=== PATIENT | female | born 1965 | race Caucasian/White ===

== ENCOUNTER → 2016-07-18 16:57 | Outpatient (CLI) | payer OTHER ==
[2015-06-11 17:08] VITALS: BMI 42.1
[~2016-07-18 16:57] MED LIST: ELIQUIS2.5 MG PO; GLUCOPHAGE500 MG PO; GLUCOTROL XL 5 M5 MG PO; LISINOPRIL2.5 MG PO; MEPERIDINE HCL50 MG PO; PERCOCET 10/3251 TA1 PO; TAMIFLU75 MG PO
== END | disposition home or self-care (01) ==
LOC: D.LABREF 16:57
DX: M17.11 Unilateral primary osteoarthritis, right knee (principal); Z11.8 Encounter for screening for other infectious and parasitic diseases

== ENCOUNTER 2016-08-04 12:50 | Emergency (ER) | payer OTHER ==
[2015-06-11 17:08] VITALS: BMI 42.1
[~2016-08-04 12:50] MED LIST changes: -GLUCOPHAGE500 MG PO; -MEPERIDINE HCL50 MG PO
[2016-08-04 16:50] LABS: BASOPHILS 0.2 % (0.0-2.0); EOSINOPHILS 2.7 % (0-7); HEMATOCRIT 42.5 % (36.0-48.0); HEMOGLOBIN 14.5 g/dL (12-16); IMMATURE GRANULOCYTES 0.3 % (0-5); LYMPHOCYTES 16.2 % (15-50); MCH 29.8 pg (26.0-34.0); MCHC 34.1 g/dL (31.0-37.0); MCV 87.3 fL (80.0-100.0); MEAN PLATELET VOLUME 9.9 fL (7.4-10.4); MONOCYTES 7.7 % (2-11); NEUTROPHILS 72.9 % (40-80); RBC 4.87 10x6/uL (4.00-5.40); RDW 12.8 % (11.5-14.5); WBC 9.3 10x3/uL (4.8-10.8)
[2016-08-04 17:07] LABS: PLATELET COUNT 273 10x3/uL (130-400)
[2016-08-17] MEDS ORDERED: GLUCOPHAGE500 MG PO (11:16)
== END 2016-08-04 18:26 | disposition home or self-care (01) ==
LOC: D.ER 12:50
PROVIDERS: Nurse Practitioner Acute Care
DX: M25.461 Effusion, right knee (principal); E11.9 Type 2 diabetes mellitus without complications

== ENCOUNTER 2016-08-21 05:50 | Inpatient (IN) | payer OTHER ==
[2016-08-17 12:21] LABS: BASOPHILS 0.4 % (0.0-2.0); EOSINOPHILS 2.4 % (0-7); HEMATOCRIT 43.6 % (36.0-48.0); HEMOGLOBIN 15.1 g/dL (12-16); IMMATURE GRANULOCYTES 0.3 % (0-5); LYMPHOCYTES 11.8 % (15-50); MCH 30.3 pg (26.0-34.0); MCHC 34.6 g/dL (31.0-37.0); MCV 87.4 fL (80.0-100.0); MEAN PLATELET VOLUME 9.7 fL (7.4-10.4); MONOCYTES 10.4 % (2-11); NEUTROPHILS 74.7 % (40-80); PLATELET COUNT 304 10x3/uL (130-400); RBC 4.99 10x6/uL (4.00-5.40); RDW 12.7 % (11.5-14.5); WBC 11.1 10x3/uL (4.8-10.8)
[2016-08-17 12:31] LABS: APPEARANCE CLEAR (CLEAR); BILIRUBIN NEGATIVE (NEGATIVE); COLOR YELLOW (YELLOW); GLUCOSE NEGATIVE (NEGATIVE); KETONE NEGATIVE (NEGATIVE); LEUKOCYTE ESTERASE NEGATIVE (NEGATIVE); NITRITE NEGATIVE (NEGATIVE); PROTEIN NEGATIVE (NEGATIVE); SPECIFIC GRAVITY 1.015 (1.005-1.020); UROBILINOGEN NORMAL (NORMAL)
[2016-08-17 12:33] LABS: CALC OSMOLALITY 280 mosm/kg (275-300); CALCIUM 9.4 mg/dL (8.5-10.1); CHLORIDE - SERUM 100 mmol/L (98-107); CREATININE - SERUM 0.7 mg/dL (0.6-1.3); GLUCOSE 191 mg/dL (74-106); POTASSIUM - SERUM 4.2 mmol/L (3.5-5.1); SODIUM 138 mmol/L (136-145); UREA NITROGEN 13 mg/dL (7-18); eGFR NON AFRICAN AMERICAN > 90 mL/min (90-120)
[2016-08-17 12:35] LABS: INR 0.95 (0.85-1.17); PROTIME 12.5 SECONDS (11.6-15.0)
[~2016-08-21] VITALS: Ht 157.5 cm; Wt 109.1 kg
[~2016-08-21 05:50] MED LIST changes: +GLUCOPHAGE500 MG PO
[2016-08-21 14:31] VITALS: BP 129/75; BMI 44.0
--- NOTE | 2016-08-21 16:02 | NUR ---
PT'S RIGHT FOOT AND LEG WASHED WITH HIBICLENS PRIOR TO CHLORPREP PER D.N.
[2016-08-21 17:31] VITALS: BP 131/78
[2016-08-21 17:33] VITALS: BP 131/78; Ht 157.5 cm; Wt 109.1 kg
--- NOTE | 2016-08-21 17:35 | NUR ---
PATIENT TO ROOM AT THIS TIME. DRESSING TO KNEE CLEAN AND DRY. IV INTACT. VS STABLE. COMPLAINS OF PAIN. BSCDS ON AND WORKING. CALL LIGHT WITHIN REACH.
--- NOTE | 2016-08-21 18:45 | NUR ---
PATIENT IN BED WITH IV INTACT. NO COMPLAINTS AT THIS TIME. BSCDS ON AND WORKING. CALL LIGHT WITHIN REACH. VS STABLE.
--- NOTE | 2016-08-21 19:30 | NUR ---
RECIEVED SHIFT REPORT. PT IS LYING IN BED. ALERT AND ORIENTED AND ABLE TO VERBALIZE NEEDS. IV IS PATENT AND FLUIDS ARE RUNNING PER ORDER. SCD'S ON. CPM ON. DRESSING TO RIGHT KNEE C/D/I. O2 @ 2 PER NASAL CANNULA. PT IS ON BEDREST POSTOP BUT IS ABLE TO TURN SELF IN BED FOR COMFORT AND SKIN CARE. PT STATES PAIN IS 4/10. NO NEEDS ARE VERBALIZED AT THIS TIME. WILL CONTINUE TO MONITOR. SIDE RAILS ARE UP X 2. BED IS IN LOWEST POSITION. BED ALARM IS ON FOR SAFETY. CALL LIGHT IS WITHIN REACH.
[2016-08-21 20:00] VITALS: BP 109/54
--- NOTE | 2016-08-21 21:06 | NUR ---
SHIFT ASSESSMENT COMPLETED. NIGHT MEDS GIVEN WITH NO PROBLEMS. NO NEEDSARE VOICED. WILL MONITOR. SIDE RAILS X 2. BED LOW. BED ALARM ON. CALL LIGHT IN REACH.
[2016-08-22] VITALS: BP 81/49
[2016-08-22 06:02] LABS: HEMOGLOBIN 12.7 g/dL (12-16); MCH 29.5 pg (26.0-34.0); MCHC 33.4 g/dL (31.0-37.0); MCV 88.4 fL (80.0-100.0); MEAN PLATELET VOLUME 10.1 fL (7.4-10.4); RBC 4.3 10x6/uL (4.00-5.40); WBC 11.8 10x3/uL (4.8-10.8)
--- NOTE | 2016-08-22 07:00 | NUR ---
REPORT RECIEVED ASSUMED CARE. PATIENT IN BED WITH IV INTACT. NO COMPLAINTS AT THIS TIME. CALL LIGHT WITHIN REACH.
[2016-08-22 08:19] VITALS: BP 109/42
[2016-08-22 12:16] VITALS: BP 106/65
--- NOTE | 2016-08-22 12:30 | NUR ---
PATIENT RECIEVED DILAUDID 4 MG PO FOR PAIN. PATIENT ALREADY RECIEVED ULTRAM AND TORADOL AND STATED THAT NEITHER ONE OF THEM IS WORKING FOR HER. SPOKE WITH TIM AND RECIEVED ORDERS FOR DILAUDID. PATIENT HAS NO OTHER COMPLAINTS AT THIS TIME. CALL LIGHT WITHIN REACH.
--- NOTE | 2016-08-22 15:57 | NUR ---
Patient Name: ANGEL UMANA Admission Status: Elective Accout number: [id number] Admission Date: 08-21-2016 : 1965 Admission Diagnosis: Attending: CANDELARIA Current LOS: 1 Anticipated DC Date: 08-23-2016 Planned Disposition: Home with Home Health [facility] Discharge Planning Comments: CM MET WITH PATIENT REGARDING D/C NEEDS AND PLANS. PATIENT STATED SHE LIVES WITH HER SPOUSE (DENNY) AND HE WILL DRIVE HER HOME AT DISCHARGE. PATIENT STATED THERE ARE 7 STEPS W/O RAILING TO ENTER HOME AND NO STAIRS INSIDE. PATIENT STATED SHE IS INDEPENDENT WITH HER CARE AND HAS NO DME AT HOME. PATIENTS PCP IS DR. TAYLOR IN [place] AND USES [facility] [address]. PATIENT WANTS HOME HEALTH W/PHYSICAL THERAPY AND SIGNED THE DIANA FORM WITH [employer] [facility]. CM WILL CONTINUE TO FOLLOW PATIENT WITH D/C NEEDS AND PLANS. PCP DR. TAYLOR ([facility]) [facility] [phone] [place] (SPOUSE) [phone] Integrity Analyst: Marivel Bobby Is the patient Alert and Oriented? Yes 0 * How many steps to enter\exit or inside your home? 7 W/O RAIL 0 * PCP DR. TAYLOR IN [facility] 0 * Pharmacy [facility] [address] [phone] * Preadmission Environment Home with Family 0 * ADLs Independent 0 * Equipment None 0 * List name and contact numbers for known caregivers / representatives who currently or will assist patient after discharge: [place] (SPOUSE) [phone] * Community resources currently utilized None 0 * Additional services required to return to the preadmission environment? Yes 0 * Can the patient safely return to the preadmission environment? Yes 0 * Has this patient been hospitalized within the prior 30 days at any hospital? No 0 Grand Total: 0
--- NOTE | 2016-08-22 16:26 | NUR ---
GAVE PATIENT DILAUDID AGAIN FOR PAIN AT THIS TIME. FAMILY AT BEDSIDE. NO COMPLAINTS. CALL LIGHT WITHIN REACH.
[2016-08-22 16:44] VITALS: BP 130/63
--- NOTE | 2016-08-22 18:45 | NUR ---
TIM PUT IN A DIFFERENT ORDER FOR PAIN MEDS AT THIS TIME. PATIENT TOLD HER DILAUDID IS NOT WORKING FOR HER EITHER. REPORT GIVEN TO NIGHT NURSE. CALL LIGHT WITHIN REACH.
--- NOTE | 2016-08-22 19:35 | NUR ---
RECIEVED SHIFT REPORT. PT IS LYING IN BED. ALERT AND ORIENTED AND ABLE TO VERBALIZE NEEDS. IV IS PATENT AND SALINE LOC AT THIS TIME. PT WAS UP WITH PHYSICAL THERAPY BUT STATES SHE IS TOO WEAK AND IN TOO MUCH PAIN TO GET UP TO THE BATHROOM. SCD'S ON. CPM ON. PT STATES PAIN IS 10/10. NO NEEDS ARE VERBALIZED AT THIS TIME. WILL CONTINUE TO MONITOR. SIDE RAILS ARE UP X 2. BED IS IN LOWEST POSITION. BED ALARM IS ON FOR SAFETY. CALL LIGHT IS WITHIN REACH.
[2016-08-22 20:00] VITALS: BP 150/80
--- NOTE | 2016-08-22 20:59 | NUR ---
SHIFT ASSESSMENT COMPLETED. NIGHT MEDS GIVEN WITH NO PROBLEMS. PT C/O PAIN 02/13. ADMINISTERED PRESCRIBED PRN TORADOL PER ORDER. PT RECIEVED 8 UNITS INSULIN PER SLIDING SCALE FOR JTTG=918. NO FURTHER NEEDS VOICED AT THIS TIME. WILL MONITOR. VISITOR AT BEDSIDE. SIDE RAILS X 2. BED LOW. BED ALARM ON. CALL LIGHT IN REACH.
[2016-08-23] VITALS: BP 158/82
[2016-08-23 04:00] VITALS: BP 144/77
[2016-08-23 05:33] LABS: HEMATOCRIT 35.9 % (36.0-48.0); HEMOGLOBIN 12.2 g/dL (12-16); MCH 29.8 pg (26.0-34.0); MCV 87.6 fL (80.0-100.0); MEAN PLATELET VOLUME 9.9 fL (7.4-10.4); RBC 4.1 10x6/uL (4.00-5.40); RDW 12.7 % (11.5-14.5); WBC 11.9 10x3/uL (4.8-10.8)
--- NOTE | 2016-08-23 07:00 | NUR ---
REPORT RECIEVED ASSUMED CARE. PATIENT IN BED WITH IV INTACT. NO COMPLAINTS AT THIS TIME. CALL LIGHT WITHIN REACH.
[2016-08-23 08:15] VITALS: BP 121/69
[2016-08-23] MEDS ORDERED: ELIQUIS2.5 MG PO (08:22)
[2016-08-23] MEDS ORDERED: MEPERIDINE HCL50 MG PO (08:23)
--- NOTE | 2016-08-23 12:56 | NUR ---
CM REASSESSMENT NOTE: PATIENT IS DISCHARGING HOME WITH [facility] ([facility] DID NOT TAKE PATIENTS INSURANCE.) PATIENTS SPOUSE IS AT BEDSIDE TO DRIVE PATIENT HOME. DME BEING DELIVERED TO ROOM BEFORE DISCHARGE.
--- NOTE | 2016-08-23 14:00 | NUR ---
PATIENT RECIEVED DISCHARGE INSTRUCTIONS. VERBALIZED UNDERSTANDING. NO QUESTIONS AT THIS TIME. PRESCRIPTIONS ALSO GIVEN TO PATIENT. IV REMOVED WITH CATH TIP INTACT. DRESSING TO RIGHT KNEE INTACT. FAMILY AT SIDE. CALL [facility] WITHIN REACH. AWAITING CPM AND WALKER FOR DC.
--- NOTE | 2016-08-23 15:22 | OP ---
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 PROCEDURE: Revision total knee arthroplasty. SURGEON: Johann Jensen MD ANESTHESIA: General. INTRAOPERATIVE COMPLICATIONS: None. SUMMARY OF PATHOLOGIC FINDINGS: The patient's polyethylene portion of the [place] had essentially split and was on the medial side of the knee and the soft tissues. Both femoral and tibial component came off very easily indicating possible loosening as well. IMPLANTS USED: [email or web address] triathlon total knee arthroplasty -- cemented with a medial 5 mm wedge into the baseplate, using universal baseplate. OPERATIVE SUMMARY IN DETAIL: After obtaining the appropriate preoperative orthopedic surgery consent as well as anesthetic consultation, evaluation and clearance, the patient was brought to the operating room and placed on the operating table in supine position. After general laryngeal mask was administered, tourniquet was placed about the proximal aspect of the right lower extremity. Right lower extremity was then prepped and draped in routine sterile fashion. The leg was elevated and exsanguinated, tourniquet was inflated to 350 mmHg. The incision used previously for the Wood[place] was incorporated into a medial to midline incision. This was taken down for paramedian arthrotomy. Patella was everted and the findings as noted above were seen. The polyethylene component that was in the medial soft tissues was removed. At this point, the femoral component was removed very easily. Additional soft tissue excision was followed by complete exposure of the tibia. It was likewise removed very easily with an osteotome. Distal intramedullary guide hole was created for distal femoral cutting followed by intramedullary guide hole of the tibia for the tibial cutting. Trials were put into place. At this point, the decision was made due to poor bone quality on the medial side and the depth of the cut, a 5-mm step off cut was made using the [employer] step-off cut guide. This was again trialed and a size 13 polyethylene was the most appropriate for soft tissue balance, and full range of motion. The patella was in good condition and it was not resurfaced. The knee was then copiously irrigated in pulsatile lavage fashion. The components were cemented into place. After augmentation on the medial side, the baseplate was placed. All excess cement was removed. After the cement was allowed to harden, the knee was taken through range of motion and found to be excellent. Paramedian arthrotomy was closed with #2 Ethibond followed by #1 Vicryl, 2-0 Vicryl and skin megan. Sterile dressings were OPERATIVE REPORT [id number] ANGEL UMANA applied. Tourniquet was deflated. The patient was awakened, taken to the recovery room in stable condition. All final needle and sponge counts were correct. TRANSINT:[id number] Voice Confirmation ID: [id number] DOCUMENT ID: [id number] JOHANN JENSEN MD at 1522 CC: [id number] DICTATION DATE: 08/21/16 170 [place] HAND: 08/22/16 0143 ADM IN [place] [id number] [place] [id number]
== END 2016-08-23 16:02 | disposition home health service (06) | DRG 467 ==
LOC: D.SDCHOLD 05:50 → D.MS 17:07 → D.SDCHOLD 18:00 → D.MS 08-23 16:02
PROVIDERS: ADMIT Orthopaedic Surgery
PROC: 0SPC0JZ Removal of Synthetic Substitute from Right Knee Joint, Open Approach (ICD-10-PCS; 2016-08-21)
PROC: 0SRC0J9 Replacement of Right Knee Joint with Synthetic Substitute, Cemented, Open Approach (ICD-10-PCS; principal; 2016-08-21 12:45)
DX: T84.022A Instability of internal right knee prosthesis, initial encounter (principal); J98.11 Atelectasis; Z68.41 Body mass index [BMI] 40.0-44.9, adult; T84.092A Other mechanical complication of internal right knee prosthesis, initial encounter; R07.9 Chest pain, unspecified; J11.1 Influenza due to unidentified influenza virus with other respiratory manifestations; E66.9 Obesity, unspecified; E11.9 Type 2 diabetes mellitus without complications; Z79.84 Long term (current) use of oral hypoglycemic drugs

== ENCOUNTER → 2018-06-20 18:10 | Outpatient (CLI) | payer OTHER ==
[2016-08-21 17:33] VITALS: BMI 44.0
[~2018-06-20 18:10] MED LIST changes: +MEPERIDINE HCL50 MG PO
== END | disposition home or self-care (01) ==
LOC: D.LABREF 18:10
DX: M25.561 Pain in right knee (principal)

== ENCOUNTER → 2019-07-21 09:18 | Outpatient (CLI) | payer OTHER ==
[2016-08-21 17:33] VITALS: BMI 44.0
== END | disposition home or self-care (01) ==
LOC: D.LABREF 09:18
PROVIDERS: ATTEND Orthopaedic Surgery
DX: M25.561 Pain in right knee (principal)

== ENCOUNTER → 2020-11-04 22:48 | Outpatient (CLI) | payer BC ==
[2020-04-19 15:18] VITALS: BMI 44.0
[~2020-11-04 22:48] MED LIST changes: +GLIPIZIDE10 MG PO; +HYDROCODON-ACE1 EA10 PO; +JANUVIA100 MG PO; +JARDIANCE25 MG PO; +VICTOZA0.6 MG/0.1 SQ; +VISTARIL25 MG PO; +ZESTRIL10 MG PO
== END | disposition home or self-care (01) ==
LOC: D.MAMMO 10-21 13:45
PROVIDERS: ATTEND Family Medicine
DX: Z12.31 Encounter for screening mammogram for malignant neoplasm of breast (principal)